=== PATIENT | male | born 1960 | race Caucasian/White ===

== ENCOUNTER 2017-03-02 20:00 | Inpatient (IN) | payer BC ==
--- NOTE | ~2017-03-02 | PN ---
Unit #: [id number] #: [id number] Patient: REGINA DOOLEY [id number] [facility] [address] [place] [address] [id number] MR#: [id number] NAME: REGINA DOOLEY ROOM: P211 Age: 56 Sex: M Admission Date: 03/03/2017 : 1960 Attending Physician: David López M.D. Admitting Physician: David López M.D. Primary Care Physician: Primary Care Physician Dinora GRANADOS NOTES DATE OF SERVICE 03/05/2017 DISCUSSION Mr. Dooley is a 56-year-old white male who was seen today. Chart was reviewed and case was discussed with staff. He has been anxious, withdrawn, and rather seclusive to himself. Meanwhile, he has been cooperative with treatment recommendations and taking the medications and tolerating them fairly well with no reported side effects. MENTAL STATUS EXAMINATION Middle-aged white male who is casually dressed with fair personal hygiene, appears to be in no acute distress or discomfort. He was awake and alert on interaction with intact orientation. His mood is anxious with congruent affect. He denies any suicidal or homicidal ideations. His insight and judgment remain slightly impaired. TREATMENT PLAN 1. We will continue him on his current treatment protocol. We will monitor his response to his medications and make further adjustments as needed. 2. We will continue to follow up. Dictated by... David López M.D. IAA/bzg TD: 03/06/2017 09:55 JOB #: [id number] [facility] PROGRESS NOTES Page 1 of 1 X David López MD PROGRESS NOTE
--- NOTE | ~2017-03-02 | PN ---
Unit #: [id number] #: [id number] Patient: REGINA GRANT [id number] [facility] [address] [place] [address] [id number] I MR#: [id number] NAME: REGINA GRANT ROOM: P211 Age: 56 Sex: M Admission Date: 03/03/2017 : 1960 Attending Physician: David López M.D. Admitting Physician: David López M.D. Primary Care Physician: Primary Care Physician Dinora GRANADOS NOTES DATE March 04, 2017 DISCUSSION Mr. Grant is a 56-year-old white male, who was seen today and chart was reviewed and the case was discussed with the staff. He has been anxious, withdrawn, but has not shown any agitation, irritability, and has been cooperative with the treatment recommendations, and he has been taking the medications and tolerating them well with no reported side effects. MENTAL STATUS EXAMINATION Middle-aged white male, who was casually dressed with fair personal hygiene and appears to be in no acute distress or discomfort. He was awake and alert on interaction with intact orientation. His mood is anxious with a congruent affect. He denies any suicidal or homicidal ideations. His insight and judgment remain slightly impaired. TREATMENT PLAN 1. We will continue him on his current medications and treatment protocol, and will monitor his response to the medications, and make further adjustments as needed. 2. We will continue to followup. Dictated by... Dave Batres/bonny TD: 03/04/2017 12:43 JOB #: [id number] Unit #: [id number] #: [id number] Patient: REGINA GRANT LEXUS PROGRESS NOTES Page 1 of 1 X David López MD PROGRESS NOTE
--- NOTE | ~2017-03-02 | PN ---
Unit #: [id number] #: [id number] Patient: REGINA GRANT [id number] [facility] [address] [place] [address] [id number] I MR#: [id number] NAME: REGINA GRANT ROOM: P211 Age: 56 Sex: M Admission Date: 03/03/2017 : 1960 Attending Physician: David López M.D. Admitting Physician: David López M.D. Primary Care Physician: Primary Care Physician Dinora GRANADOS NOTES DATE 03/06/2017 DISCUSSION Mr. Grant is a 56-year-old, white male who was seen today and chart was reviewed and case was discussed with the staff. He has been anxious, withdrawn and rather seclusive to himself. Meanwhile, he appears to be coming out of the detox without any complications. He has been taking medications and tolerating them fairly well with no reported side effects. MENTAL STATUS EXAM Middle-aged male who was casually dressed with fair personal hygiene, appears to be in no acute distress or discomfort. He was awake and alert on interaction with intact orientation. His mood was anxious with congruent affect. He denies any suicidal or homicidal ideation. His insight and judgement remains slightly impaired. TREATMENT PLAN 1. We will continue him on his current medications and treatment protocol. We will monitor his response to the medication and make further adjustments as needed. 2. We will continue (1) . Dictated by... Dave Batres/gilbert TD: 03/08/2017 05:35 JOB #: [id number] Unit #: [id number] #: [id number] Patient: REGINA GRANT L[facility] PROGRESS NOTES Page 1 of 1 X David López MD PROGRESS NOTE
--- NOTE | ~2017-03-02 | PA ---
Unit #: [id number] #: [id number] Patient: REGINA DOOLEY [id number] [facility] [address] [place] [address] [id number] MR#: [id number] NAME: REGINA DOOLEY ROOM: P211 Age: 56 Sex: M Admission Date: 03/03/2017 : 1960 Date of Assessment: 03/04/2017 Attending Physician: David López M.D. Admitting Physician: David López M.D. Primary Care Physician: Primary Care Physician No PSYCHIATRIC ASSESSMENT IDENTIFYING DATA Mr. Dooley is a 56-year-old white male, who is a resident of [place], [place] and was referred to us from [place], [place]. CHIEF COMPLAINT "I've been having suicidal ideations for the past 2 months." HISTORY OF PRESENT ILLNESS Mr. Dooley is a 56-year-old white male with a history of mood disorder, who apparently was seen by his therapist to discuss his case with his and he felt the patient would be seen by psychiatrist for medication. The patient reports that he has been having suicidal ideation for the past 2 months and since he had his second hip replacement done in 01/2017 and got fired last month due to his medical issues. The ER nurse reported the patient came to the ER after being told by his psychiatrist that the patient will benefit from inpatient evaluation. The patient has been drinking as he does have cirrhosis of the liver and has enlarged spine and the patient just had hip replacement this past January of this year and the patient recently got fired from his work and has been decompensating, has been reporting recently increasing depression, anxiety, feelings of hopelessness and helplessness, and suicidal ideation and as such, recommendation for inpatient level of care for safety and stabilization was made and the patient was transferred to us. SUBSTANCE ABUSE HISTORY The patient reports history of alcohol, cannabis, acid, and amphetamines abuse. However, alcohol appears to be his drug of choice. He reports that he has been drinking a pint of alcohol on daily basis. PAST PSYCHIATRIC HISTORY The patient has had history of outpatient chemical dependency and psychiatric treatment. Review of the medical records indicate he has been diagnosed and treated for mood disorder and supposed to be on Wellbutrin and BuSpar, but has been using alcohol excessively and as such, has not been able to show a therapeutic response and does report suicidal ideation with worsening depressive symptom. PAST MEDICAL HISTORY Cirrhosis of liver, enlarged spine, asthma, COPD. ALLERGIES No known medication allergies. Unit #: [id number] #: [id number] Patient: REGINA DOOLEY PERSONAL AND SOCIAL HISTORY A 56-year-old white male, who reports that he is and unemployed and lives at home with his and has fairly decent social support system. MENTAL STATUS EXAMINATION Middle-aged white male, who was casually dressed with fair personal hygiene, appears to be in no acute distress or discomfort. He was awake and alert on interaction with intact orientation to time, place, and person. His mood was anxious with a congruent affect. His speech was slow and restricted in content. He reports having suicidal ideations, but denies any homicidal ideations, and also denies any auditory or visual hallucinations. His insight and judgment remain significantly impaired. DIAGNOSTIC IMPRESSION Psychiatric: Major depressive disorder, recurrent, moderate, without psychotic features; alcohol dependence, moderate and acute withdrawals. Medical: Cirrhosis of the liver, enlarged spine, chronic obstructive pulmonary disease. Stressors: Moderate psychosocial stressors. TREATMENT PLAN 1. The patient has presented with a history of mood disorder, and has been decompensating and will need inpatient hospitalization for safety and stabilization. We will start him back on his home medications. We will adjust the medications and monitor response. 2. Supportive therapy was provided to the patient. 3. Safe, structured, and nourishing environment will be reported. ESTIMATED LENGTH OF STAY 5 to 7 days. ABILITY TO HELP SELF Limited. WILLINGNESS TO HELP SELF The patient appears to be willing to help self. STRENGTHS 1. Communicative. 2. Cooperative. PROBLEMS 1. Chronic dysphoric symptoms. 2. Chronic chemical dependency. 3. Poor social support system. DISCHARGE CRITERIA This will be contingent upon the patient's ability to go through detox without having any significant withdrawal symptoms as well as his ability to stay safe to himself, particularly after discharge from the hospital. Dictated by... David López M.D. Unit #: [id number] #: [id number] Patient: REGINA DOOLEY IAA/modl TD: 03/04/2017 07:09 JOB #: [id number] PSYCHIATRIC ASSESSMENT Page 1 of 1 X David López MD PSYCHIATRIC ASSESSMENT
--- NOTE | ~2017-03-02 | HP ---
Unit #: [id number] #: [id number] Patient: REGINA DOOLEY [id number] [facility] [address] [place] [address] [id number] I MR#: [id number] NAME: REGINA DOOLEY ROOM: P211 Age: 56 Sex: M Admission Date: 03/03/2017 : 1960 Attending Physician: David López M.D. Admitting Physician: David López M.D. Primary Care Physician: Primary Care Physician No HISTORY AND PHYSICAL HISTORY OF PRESENT ILLNESS Regina is a 56 year old admitted to [address] [place] [address] with depression and verbalizing wanting to hurt himself. PAST MEDICAL HISTORY 1. History of alcohol abuse. a. Cirrhosis. 2. COPD. PAST SURGICAL HISTORY 1. Bilateral hips 2. Cholecystectomy 3. T & A ALLERGIES No known drug allergies. SOCIAL HISTORY Smokes E-cigarettes, drinks at least a pint plus beer three to four times a week and admits to using marijuana on occasion. FAMILY HISTORY Medically noncontributory. REVIEW OF SYSTEMS CONSTITUTIONAL: No fever or chills. HEENT: Denies any sore throat, ear pain or runny nose. CARDIOVASCULAR: Denies chest pain, irregular heart rhythm or palpitations. CHEST: Denies shortness of breath or cough. No hemoptysis. GASTROINTESTINAL: Denies nausea, vomiting, diarrhea or chronic constipation. ENDOCRINE: Denies history of increased thirst or urination. No recent significant weight loss or gain. GENITOURINARY: Denies dysuria, frequency, or hematuria. SKIN: Denies any rashes. HEMATOLOGIC: Denies history of increased bleeding or bruising. MUSCULOSKELETAL: Denies any hot, swollen joints. No generalized muscle pain. NEUROLOGIC: Denies problems with vision or speech. No frequent, severe headaches. No numbness, tingling or weakness in any extremities. Denies loss of bladder or bowel control. Unit #: [id number] #: [id number] Patient: REGINA DOOLEY CURRENT MEDICATIONS 1. Detox protocol 2. Symbicort b.i.d. 3. BuSpar 15 mg t.i.d. 4. Cingular 10 mg q day 5. Protonix 40 mg q day 6. Lactulose 10 grams q day 7. Wellbutrin XL 300 mg q day 8. Proventil inhaler p.r.n. PHYSICAL EXAMINATION GENERAL: Alert, well-nourished, in no apparent distress. VITAL SIGNS: Blood pressure 126/72, heart rate 80, respirations 16, temperature 98.6. WEIGHT: 200 pounds. HEIGHT: 5'10". SKIN: Warm and dry without rash or lesion. HEENT: Normocephalic. TMs not viewed. Oral and nasal passages clear. Conjunctivae clear. Pupils equal, round and reactive to light and accommodation. Extraocular movements intact. NECK: Supple without lymphadenopathy or thyromegaly. HEART: Regular rate and rhythm without murmur. LUNGS: Clear. ABDOMEN: Soft, nontender. : Not done. EXTREMITIES: No evidence of cyanosis, clubbing or edema. Moves all extremities without focal deficit. NEUROLOGICAL: Grossly within normal limits. Cranial Nerves: II: Visual rivera are intact. III, IV AND : Extraocular movements are intact. Pupils are equal, round and reactive to light. V: Facial sensation is grossly normal. VII: Facial movements and expression are normal. VIII: Auditory acuity grossly intact. IX, X: Uvula is midline. Phonation is normal. XI: Patient shrugs shoulders and turns head normally. XII: Tongue protrudes in the midline. Sensory and Motor Function: Sensory and motor sensation is grossly normal. Motor: moves all extremities well. Coordination: Gait is normal. Deep Tendon Reflexes: Intact. IMPRESSION Psychiatric admission. RECOMMENDATIONS PSYCHIATRIC: Per psychiatrist. MEDICAL: I see no contraindications to participating in facility's activities. MEDICAL PROGNOSIS Good. MEDICAL CONDITION Stable. Unit #: [id number] #: [id number] Patient: REGINA DOOLEY Dictated by... Patricia Lobato P.A.-C. for Dave Muñoz/gilbert TD: 03/04/2017 00:58 JOB #: [id number] HISTORY AND PHYSICAL Page 1 of 1 X Patricia Lobato HISTORY AND PHYSICAL
== END 2017-03-06 15:20 | disposition home or self-care (01) | DRG 897 ==
LOC: P2S 03-03 06:19
PROC: HZ2ZZZZ Detoxification Services for Substance Abuse Treatment (ICD-10-PCS; principal; 2017-03-04)
DX: F10.20 Alcohol dependence, uncomplicated (principal); K70.30 Alcoholic cirrhosis of liver without ascites; J44.9 Chronic obstructive pulmonary disease, unspecified; Z90.49 Acquired absence of other specified parts of digestive tract; Z96.643 Presence of artificial hip joint, bilateral
CPT/HCPCS: 86592